=== PATIENT | male | born 1975 | race Caucasian/White ===

== ENCOUNTER 2019-03-26 18:23 | Emergency (ER) | payer BC ==
--- NOTE | 2019-03-26 18:38 | EDM.PDOC ---
ED HPI GENERAL MEDICAL PROBLEM - General Chief Complaint: Abdominal Pain Stated Complaint: PT HAS STOMACH PAINS Time Seen by Provider: 03/26/19 18:33 - History of Present Illness INITIAL COMMENTS - FREE TEXT/NARRATIVE: HISTORY AND PHYSICAL: History of present illness: Patient's 44-year-old white male presents with a concern of medical screening exam for possible abdominal wall hernia he states he has an intermittent bulge in his supraumbilical region of his mid abdomen that comes and goes and is tender he denies nausea vomiting or other complaints he states this is not present now and he cannot provoke it. Review of systems: As per history of present illness and below otherwise all systems reviewed and negative. Past medical history: As per history of present illness and as reviewed below otherwise noncontributory. Surgical history: As per history of present illness and as reviewed below otherwise noncontributory. Social history: No reported history of drug or alcohol abuse. Family history: As per history of present illness and as reviewed below otherwise noncontributory. Physical exam: HEENT: Atraumatic, normocephalic, pupils reactive, negative for conjunctival pallor or scleral icterus, mucous membranes moist, throat clear, neck supple, nontender, trachea midline. Lungs: Clear to auscultation, breath sounds equal bilaterally, chest nontender. Heart: S1S2, regular, negative for clicks, rubs, or JVD. Abdomen: Soft, nondistended, mild tenderness supraumbilical region no gross hernia defect Negative for masses or hepatosplenomegaly. Negative for costovertebral tenderness. Pelvis: Stable nontender. Genitourinary: Deferred. Rectal: Deferred. Extremities: Atraumatic, negative for cords or calf pain. Neurovascular unremarkable. Neuro: Awake, alert, oriented. Cranial nerves II through XII unremarkable. Cerebellum unremarkable. Motor and sensory unremarkable throughout. Exam nonfocal. Diagnostics: None Therapeutics: None Impression: #1 abdominal pain rule out ventral hernia Definitive disposition and diagnosis as appropriate pending reevaluation and review of above. - Related Data Allergies Allergy/AdvReac Type Severity Reaction Status Date / Time No Known Allergies Allergy Verified 03/26/19 18:31 Home Meds: Home Meds . [No Known Home Meds] 03/26/19 [History] Past Medical History - Past Health History Medical/Surgical History: Denies Medical/Surgical History Social & Family History - Tobacco Use Smoking Status *Q: Never Smoker Second Hand Smoke Exposure: No - Recreational Drug Use Recreational Drug Use: No ED ROS GENERAL - Review of Systems Review Of Systems: ROS reveals no pertinent complaints other than HPI. ED EXAM, GENERAL - Physical Exam Exam: See Below (See dictation) Course - Vital Signs Last Recorded V/S: Last Vital Signs Temp 36.8 C 03/26/19 18:30 Pulse 64 03/26/19 18:30 Resp 16 03/26/19 18:30 BP 124/77 03/26/19 18:30 Pulse Ox 97 03/26/19 18:30 Departure - Departure Time of Disposition: 18:38 Disposition: Home, Self-Care 01 Condition: Good Clinical Impression: Abdominal pain - Discharge Information Referrals: PCP,None [Primary Care Provider] - Forms: ED Department Discharge Additional Instructions: The following information is given to patients seen in the emergency department who are being discharged to home. This information is to outline your options for follow-up care. We provide all patients seen in our emergency department with a follow-up referral. The need for follow-up, as well as the timing and circumstances, are variable depending upon the specifics of your emergency department visit. If you don't have a primary care physician on staff, we will provide you with a referral. We always advise you to contact your personal physician following an emergency department visit to inform them of the circumstance of the visit and for follow-up with them and/or the need for any referrals to a consulting specialist. The emergency department will also refer you to a specialist when appropriate. This referral assures that you have the opportunity for followup care with a specialist. All of these measure are taken in an effort to provide you with optimal care, which includes your followup. Under all circumstances we always encourage you to contact your private physician who remains a resource for coordinating your care. When calling for followup care, please make the office aware that this follow-up is from your recent emergency room visit. If for any reason you are refused follow-up, please contact the [facility] emergency department at and asked to speak to the emergency department charge nurse. [facility] Specialty Care - General Surgery Professional Building [address] [place] [address], [address] [place] [address]
== END 2019-03-26 18:54 | disposition home or self-care (01) ==
LOC: MW.ED 18:23
DX: R10.9 Unspecified abdominal pain (principal)
CPT/HCPCS: 99283

== ENCOUNTER 2019-04-07 07:09 | Day surgery (SDC) | payer BC ==
[~2019-04-07 07:09] MED LIST: Lactated Ringers 1,000 ML IV SCH; Sodium Chloride 0.9% 10 ML SDV IV PRN; Sodium Chloride 0.9% 10 ML Syringe FLUSH PRN; Sodium Chloride 0.9% 2.5 ML Syringe FLUSH PRN; ceFAZolin 2 GM in Premix Bag 1 BAG IV ONE
[2019-04-07] MEDS ORDERED: Bupivacaine 0.5% 30 ML SDV ONE (07:29)
--- NOTE | 2019-04-07 09:06 | PCM.PREANE ---
Preanesthetic Assessment - Anesthesia/Transfusion/Family Hx Anesthesia History: Prior Anesthesia Without Reaction Family History of Anesthesia Reaction: No Transfusion History: No Prior Transfusion(s) Intubation History: Unknown - Review of Systems General: No Symptoms Pulmonary: No Symptoms Cardiovascular: No Symptoms Gastrointestinal: No Symptoms Neurological: No Symptoms Other: Reports: None - Physical Assessment NPO Status Date: 04/06/19 NPO Status Time: 20:00 Vital Signs: Last Vital Signs Temp 36.0 C 04/07/19 07:50 Pulse 59 L 04/07/19 07:50 Resp 16 04/07/19 07:50 BP 126/72 04/07/19 07:50 Pulse Ox Height: 6 ft Weight: 120.656 kg ASA Class: 2 Mental Status: Alert & Oriented x3 Airway Class: Mallampati = 2 Dentition: Reports: Normal Dentition Thyro-Mental Finger Breadths: 3 Mouth Opening Finger Breadths: 3 ROM/Head Extension: Full Lungs: Clear to Auscultation, Normal Respiratory Effort Cardiovascular: Regular Rate, Regular Rhythm - Allergies Allergies/Adverse Reactions: Allergies Allergy/AdvReac Type Severity Reaction Status Date / Time No Known Allergies Allergy Verified 04/04/19 11:49 - Blood Blood Available: No - Anesthesia Plan Pre-Op Medication Ordered: None - Acknowledgements Anesthesia Type Planned: General Anesthesia Pt an Appropriate Candidate for the Planned Anesthesia: Yes Alternatives and Risks of Anesthesia Discussed w Pt/Guardian: Yes Pt/Guardian Understands and Agrees with Anesthesia Plan: Yes PreAnesthesia Questionnaire - Past Health History Medical/Surgical History: Denies Medical/Surgical History HEENT History: Reports: None Cardiovascular History: Reports: Hypertension Other Cardiovascular History: HTN in the past, h/o increased cholesterol Respiratory History: Reports: None Gastrointestinal History: Reports: GERD, Other (See Below) Other Gastrointestinal History: occasional heartburn, hx anal fissures Genitourinary History: Reports: None Musculoskeletal History: Reports: Fracture Other Musculoskeletal History: hx fx wrist Neurological History: Reports: Concussion Psychiatric History: Reports: Anxiety, Bipolar, Depression Endocrine/Metabolic History: Reports: Obesity/BMI 30+ Hematologic History: Reports: None Immunologic History: Reports: None Oncologic (Cancer) History: Reports: None Dermatologic History: Reports: None - Past Surgical History Head Surgeries/Procedures: Reports: None HEENT Surgical History: Reports: None Cardiovascular Surgical History: Reports: None Respiratory Surgical History: Reports: None GI Surgical History: Reports: None Male Surgical History: Reports: None Endocrine Surgical History: Reports: None Neurological Surgical History: Reports: None Musculoskeletal Surgical History: Reports: Carpal Tunnel Other Musculoskeletal Surgeries/Procedures:: surgical repair of fx wrist Oncologic Surgical History: Reports: None Dermatological Surgical History: Reports: None - SUBSTANCE USE Smoking Status *Q: Former Smoker Tobacco Use Within Last Twelve Months: No - HOME MEDS Home Medications: Home Meds Calcium Carbonate [Tums] 1 tab.chew CHEW ASDIRECTED PRN 04/04/19 [History] Ranitidine HCl [Ranitidine] 1 tab PO ASDIRECTED PRN 04/04/19 [History] - CURRENT (IN HOUSE) MEDS Current Meds: Current Medications Lactated Ringer's (Ringers, Lactated) 1,000 mls @ 125 mls/hr IV ASDIRECTED ERICH Last Admin: 04/07/19 08:00 Dose: 125 mls/hr Sodium Chloride (Saline Flush) 10 ml FLUSH ASDIRECTED PRN PRN Reason: Keep Vein Open Sodium Chloride (Saline Flush) 2.5 ml FLUSH ASDIRECTED PRN PRN Reason: Keep Vein Open Sodium Chloride (Normal Saline) 10 ml IV ASDIRECTED PRN PRN Reason: IV Use Discontinued Medications Bupivacaine HCl (Marcaine 0.5%) Confirm Administered Dose 30 ml .ROUTE .STK-MED ONE Stop: 04/07/19 07:30 Cefazolin Sodium/Dextrose 2 gm (/ Premix) 50 mls @ 100 mls/hr IV ONETIME ONE Stop: 04/06/19 14:42
[2019-04-07] MEDS ORDERED: Rocuronium 100 MG/10 ML Syringe ONE (10:27)
[2019-04-07] MEDS ORDERED: Lidocaine 2% 5 ML SDV ONE (10:27)
[2019-04-07] MEDS ORDERED: fentaNYL 100 MCG/2 ML SDV ONE (10:28)
[2019-04-07] MEDS ORDERED: Midazolam 1 MG/ML 2 ML SDV ONE (10:28)
[2019-04-07] MEDS ORDERED: Propofol 200 MG/20 ML SDV ONE (10:28)
[2019-04-07] MEDS ORDERED: ceFAZolin/Dextrose,Iso-Osmotic 2 GM/50 ML Duplex Bag IV ONE (11:23)
[2019-04-07] MEDS ORDERED: Albuterol 0.083% 2.5 MG/3 ML Neb Soln NEB PRN (11:31)
[2019-04-07] MEDS ORDERED: EPINEPHrine 1:10,000 1 MG/10 ML Syringe IVPUSH PRN (11:31)
[2019-04-07] MEDS ORDERED: fentaNYL 100 MCG/2 ML SDV IVPUSH PRN (11:31)
[2019-04-07] MEDS ORDERED: Atropine 0.1 MG/ML 10 ML Syringe IVPUSH PRN ×2 (11:31)
[2019-04-07] MEDS ORDERED: 50% Dextrose in Water 50 ML Syringe IVPUSH PRN (11:31)
[2019-04-07] MEDS ORDERED: Naloxone 0.4 MG/ML Syringe IVPUSH PRN (11:31)
[2019-04-07] MEDS ORDERED: Octyl 2-Cyanoacrylate 1 Tube ONE (11:32)
[2019-04-07] MEDS ORDERED: Glycopyrrolate 0.2 MG/ML SDV ONE (11:32)
[2019-04-07] MEDS ORDERED: Neostigmine Methylsulfate 1 MG/ML 5 ML Syringe ONE (11:32)
--- NOTE | 2019-04-07 11:46 | PCM.OPNOTE ---
- General Post-Op/Procedure Note Date of Surgery/Procedure: 04/07/19 Operative Procedure(s): Infra-umbilical hernia repair Findings: Infra-umbilical fat containing hernia Pre Op Diagnosis: Infra-umbilical hernia Post-Op Diagnosis: Infra-umbilical fat containing hernia Anesthesia Technique: General ET Tube Primary Surgeon: Genevieve Sapp Fluid Replacement, Intraop: 1,400 EBL in mLs: 5 Complications: None Condition: Good
[2019-04-07] MEDS ORDERED: HYDROmorphone 1 MG/ML Syringe IVPUSH ONE (12:06)
[2019-04-07] MEDS ORDERED: HYDROmorphone 2 MG/ML Syringe ONE (12:27)
--- NOTE | 2019-04-07 12:47 | PCM.POSTAN ---
POST ANESTHESIA ASSESSMENT - MENTAL STATUS Mental Status: Alert, Oriented - VITAL SIGNS Vital Signs: Last Vital Signs Temp 37 C 04/07/19 11:58 Pulse 52 L 04/07/19 12:45 Resp 11 L 04/07/19 12:45 BP 105/63 04/07/19 12:45 Pulse Ox 92 L 04/07/19 12:45 - RESPIRATORY Respiratory Status: Respiratory Rate WNL, Airway Patent, O2 Saturation Stable - CARDIOVASCULAR CV Status: Pulse Rate WNL, Blood Pressure Stable - GASTROINTESTINAL GI Status: No Symptoms - PAIN Pain Score: 2 - POST OP HYDRATION Hydration Status: Adequate & Stable - OBSERVATIONS Free Text/Narrative:: no anesthesia problems
--- NOTE | 2019-04-07 14:59 | PCM48HPAN ---
Post Anesthesia Note - EVALUATION WITHIN 48HRS OF ANESTHETIC Vital Signs in Normal Range: Yes Patient Participated in Evaluation: Yes Respiratory Function Stable: Yes Airway Patent: Yes Cardiovascular Function Stable: Yes Hydration Status Stable: Yes Pain Control Satisfactory: Yes Nausea and Vomiting Control Satisfactory: Yes Mental Status Recovered: Yes Vital Signs: Last Vital Signs Temp 35.8 C 04/07/19 12:50 Pulse 55 L 04/07/19 13:30 Resp 16 04/07/19 13:30 BP 102/65 04/07/19 13:30 Pulse Ox 95 04/07/19 13:30 - COMMENTS/OBSERVATIONS Free Text/Narrative:: no anesthesia problems
--- NOTE | 2019-04-08 15:23 | OR ---
SURGEON: GENEVIEVE SAPP MD DATE OF PROCEDURE: 04/07/2019 PREOPERATIVE DIAGNOSIS: Umbilical hernia. POSTOPERATIVE DIAGNOSIS: Umbilical hernia. PROCEDURE PERFORMED: Umbilical hernia repair. PRIMARY SURGEON: Genevieve Sapp MD. BILLBOARD POSTER: assistant press operator: Willy Blanco MD. FLUIDS: See anesthesia record. ESTIMATED BLOOD LOSS: 5 mL. FINDINGS: Infraumbilical hernia containing fat. Fascial defect measured 1 cm in size. COMPLICATIONS: None. INDICATIONS: The patient is a 44-year-old male who presents with new onset of a periumbilical hernia. This is symptomatic. A CT scan of the abdomen showed a small umbilical hernia containing fat. The decision was made to proceed with repair. I explained the procedure; expected perioperative course; and risks including bleeding, infection, or damage to surrounding structures. He verbalized understanding and wishes to proceed. PROCEDURE IN DETAIL: The patient was brought into the OR and placed on the OR table in supine position. A time-out was completed verifying the patient's name, age, date of , allergies, and procedure to be performed. General endotracheal anesthesia was induced. The abdomen was prepped and draped in usual standard fashion. I anesthetized the infraumbilical fold with 0.5% Marcaine plain. A 15 blade was used to make an incision along the infraumbilical fold. Cautery was used to dissect down to the level of subcutaneous fat. I immediately encountered a small hernia sac. This was easily reduced back into the abdomen. I cleared away the fascia around the hernia and the fascial defect using electrocautery. I measured the fascial defect and it was 1 cm in size. Interrupted 0 Ethibond sutures were used to close the defect. The wound was irrigated. I then noticed a small amount of fat which was herniated out the side of my incision. This was transected using cautery and the remainder of the fat was reduced back into the abdomen and an extra stitch was placed. This appeared to close the defect adequately. Cautery was used to achieve hemostasis. Interrupted 3-0 Vicryl's were used to close the subcutaneous fat layer and the skin was closed with running 4-0 Monocryl stitch. Dermabond and sterile dressings were applied. The patient tolerated the procedure well and was taken to PACU in stable condition. ALISSON / LEANDER /[id number]
== END 2019-04-07 15:00 | disposition home or self-care (01) ==
LOC: MW.SDS 07:09
PROVIDERS: ATTEND Surgery
DX: K42.9 Umbilical hernia without obstruction or gangrene (principal); I10 Essential (primary) hypertension; K21.9 Gastro-esophageal reflux disease without esophagitis; F41.9 Anxiety disorder, unspecified; F31.9 Bipolar disorder, unspecified; N52.9 Male erectile dysfunction, unspecified; Z87.891 Personal history of nicotine dependence; Z79.899 Other long term (current) drug therapy
CPT/HCPCS: A9270-GY; J0690; J1170; J2001; J2250; J2704; J3010; J3490; J7120

== ENCOUNTER 2022-01-24 08:42 | Day surgery (SDC) | payer BC ==
[~2022-01-24 08:42] MED LIST changes: -Sodium Chloride 0.9% 10 ML SDV IV PRN; -Sodium Chloride 0.9% 10 ML Syringe FLUSH PRN; -Sodium Chloride 0.9% 2.5 ML Syringe FLUSH PRN; -ceFAZolin 2 GM in Premix Bag 1 BAG IV ONE
[2022-01-24] MEDS ORDERED: Glycopyrrolate 0.2 MG/ML SDV ONE (09:17)
[2022-01-24] MEDS ORDERED: fentaNYL 100 MCG/2 ML SDV ONE (09:17)
[2022-01-24] MEDS ORDERED: Midazolam 1 MG/ML 2 ML SDV ONE (09:17)
[2022-01-24] MEDS ORDERED: Propofol 200 MG/20 ML SDV ONE (09:17)
[2022-01-24] MEDS ORDERED: Ondansetron 4 MG/2 ML SDV ONE (09:17)
[2022-01-24] MEDS ORDERED: Lidocaine 2% 5 ML SDV ONE (09:17)
== END 2022-01-24 11:36 | disposition home or self-care (01) ==
LOC: MW.SDS 08:42
PROVIDERS: ATTEND Surgery
DX: K51.40 Inflammatory polyps of colon without complications (principal); K57.30 Diverticulosis of large intestine without perforation or abscess without bleeding; K64.8 Other hemorrhoids; K21.00 Gastro-esophageal reflux disease with esophagitis, without bleeding; F41.9 Anxiety disorder, unspecified; F32.A Depression, unspecified; E66.9 Obesity, unspecified; Z68.30 Body mass index [BMI] 30.0-30.9, adult; Z87.891 Personal history of nicotine dependence
CPT/HCPCS: 43239; 45385; J2250; J2405; J2704; J3010; J3490; J7120; 00813